=== PATIENT | male | born 1995 | race Caucasian/White ===

== ENCOUNTER 2016-06-02 19:51 | Emergency (ER) | payer OTHER ==
[~2016-06-02] VITALS: Ht 182.9 cm; Wt 86.8 kg
[~2016-06-02 19:51] MED LIST: NOMED
[2016-06-02 19:59] VITALS: BP 115/60; PULSE 86; RESP 18; O2SAT 97
--- NOTE | 2016-06-02 20:55 | ED.REPORT ---
HPI-Fever Date of Service Jun 02, 2016 ED Provider: Marie RiveraO. A healthy 21 year old male presents to the ED with a non-productive cough onset 0400 today. Associated symptoms include subjective fever, chills, fatigue, nasal congestion, and generalized myalgias. The patient has taken Tamiflu in the past and reports that it caused him to vomit. Nursing Notes Stated Complaint: CHEST PAIN/FEVER/CHILLS Chief Complaint: FLU/Cold Symptoms Nursing Notes Reviewed: Yes Allergies: Coded Allergies: Penicillins (Verified Allergy, Unknown, 03/12/12) AMOXICILLIN = RASH Miscellaneous Medications No Historical Medication (No Historical Medication) Ea General Time Seen by MD: 20:54 Chief Complaint Cough, non-productive Hx Obtained From: Patient Arrived By: Walk-in Onset Occurred: 13 - 16 hours ago Symptom Duration: Since onset Location: : Back upper (Generalized) Quality: Painful Severity: Current: Moderate Severity: Maximum: Moderate Associated with: Reports: Chills Pertinent Negative: Relieved by nothing Context: Immunization Status General: Unknown Recent Healthcare: No recent doctor visit Similar Sx Previous: Yes Past Medical History Past Medical History None reported Past Surgical History Right hand [place] Teeth Smoking History Unknown if Ever Smoker Ambulatory Status Independent Review of Systems Constitutional: Reports: Chills, Fatigue, Fever (Subjective) Ears / Nose / Throat: Reports: Nasal congestion Respiratory: Reports: Non-productive cough, Denies: Shortness of breath GI: Denies: Vomiting Complete sys rev & neg: except as marked. Musculoskeletal: Reports: Myalgia (Generalized) Physical Exam Initial Vital Signs Vital Signs (First) Date Time Temp Pulse Resp B/P Pulse Ox O2 Delivery O2 Flow Rate FiO2 06/02/16 19:59 37.6 86 18 115/60 97 Room Air Initial VS: Reviewed Head / Eyes: Atraumatic, Normocephalic ENT: Conjunctiva normal, No scleral icterus Psychiatric: Mood/affect normal, Behavior normal, Normal thought content General/Constitutional: Awake, Alert, No acute distress Respiratory / Chest: Breath sounds NL, Breath sounds = bilat, No respiratory distress Cardiovascular: Heart rate NL, Regular rhythm, Heart sounds NL Skin: Warm, Dry Neurologic: Oriented X3, Speech NL, No motor deficits, No sensory deficits Interpretation & Diagnostics Interpretation & Diagnostics: Positive for Influenza A Re-Eval/Medical Decision Med Decision/Clinical Course Influenza A syndrome without evidence of pneumonia, meningitis or sepsis. Tamiflu was offered and recommended. Mr. Burgos declined. Evidently he has had influenza in the past and he was intolerant to the Tamiflu. He understands the risks that he may have worsening disease due to the fact that he has not taking the Tamiflu. I do recommend that he is vaccinated in the future. He will return if any problems or any worsening symptoms. Re-Evaluation/Progress : Time of Eval: 21:10 Patient Status: Condition improved Re-Evaluation/Progress Note: Discussed with patient lab results, diagnosis, and plan for discharge. Follow-up and return to the ER instructions given. Patient agrees with plan for care and all questions were addressed. Counseled Regarding: Diagnosis, Lab results, Need for follow-up, When/why to return to ED Discharge & Departure Impression: Primary Impression: Influenza due to influenza A virus Disposition: Home Discharge Condition All VS Reviewed: Yes Condition: Stable Patient Instructions: Influenza (ED) Additional Instructions: Thank you for entrusting us with your care. Your Influenza swab was positive for Influenza A Use Tylenol or Motrin as directed for fever and chills. If you change your mind about Tamiflu, let us know. Do not take aspirin products. Read the Influenza after-care instructions given. Do not return to work until your symptoms have completely resolved, probably in 5-7 days. Drink fluids to remain hydrated. Call your primary care provider tomorrow for a follow-up appointment. Return to the ER with any new or worsening symptoms including confusion, headache, and cough. Referrals: Madelyn Franklin (PCP) Lisaibelvira Attestation Portions of this note were transcribed by Diane Francisco. I, Dr. Pate, personally performed the history, physical exam, and medical decision-making; I reviewed and confirmed the accuracy of the information in the transcribed note. Signed by: Joe García, 06/02/2016, 22:38 copies to: Madelyn Franklin Todd P DO Jun 02, 2016 20:55 DIANE FRANCISCO Jun 02, 2016 21:41
[2016-06-02] MEDS ORDERED: Ketorolac 30 mg/mL 2 mL Inj IM ONE (21:40)
[2016-06-02 22:07] VITALS: BP 121/60; PULSE 84; O2SAT 99
[2016-06-02 22:11] VITALS: BP 121/60; PULSE 84; RESP 18; O2SAT 99
== END 2016-06-02 22:11 | disposition home or self-care (01) ==
LOC: SED 19:51
DX: J10.1 Influenza due to other identified influenza virus with other respiratory manifestations (principal); Z88.0 Allergy status to penicillin; Z88.1 Allergy status to other antibiotic agents
CPT/HCPCS: 87804; 96372; 99284; J1885

== ENCOUNTER 2016-08-18 00:40 | Emergency (ER) | payer OTHER ==
[~2016-08-18] VITALS: Ht 182.9 cm; Wt 87.3 kg
[2016-08-18 00:43] VITALS: BP 131/68; PULSE 71; RESP 16; O2SAT 98
--- NOTE | 2016-08-18 00:52 | ED.REPORT ---
HPI-General Illness Date of Service Aug 18, 2016 ED Provider: Jesús Moore MD Patient is a healthy 21 year old male who presents to the ED complaining of a severe sore throat that began 1 week ago, worsening in severity tonight. Tonight he felt as if his throat was closing up. He reports pain with speaking, opening his mouth, and swallowing. Patient reported that his jaw was numb earlier today, which is now resolved. His mother reports that the patient has persistently complained of pain. He reports associated headache, cough, left ear pain, and a runny nose. Patient reports a subjective fever but is afebrile in the ED. He was seen at Urgent Care earlier today and started on Z-robyn his left ear infection. The patient did not recently sustain any head trauma. Patient has not recently had any sick contacts or known contact with mono. Nursing Notes Stated Complaint: SORE THROAT Chief Complaint: FLU/Cold Symptoms Nursing Notes Reviewed: Yes Allergies: Coded Allergies: Penicillins (Verified Allergy, Unknown, 08/18/16) AMOXICILLIN = RASH Scheduled Clindamycin (Clindamycin) 300 Mg Capsule 600 MG PO TID Dexamethasone (Dexamethasone) 4 Mg Tablet 4 MG PO BIDAC Miscellaneous Medications No Historical Medication (No Historical Medication) Ea General Time Seen by MD: 00:51 Chief Complaint Sore throat Hx Obtained From: Patient Arrived By: Walk-in Sudden in Onset?: No Onset Occurred: 1 week ago Symptom Duration: Since onset Quality: Painful Severity: Current: Severe Severity: Maximum: Severe Recent Healthcare: Recent doctor visit Similar Sx Previous: No Past Medical History Past Medical History healthy Past Surgical History Right hand [place] Teeth Smoking History Unknown if Ever Smoker Social History Other Social History: Good social support, Lives with parents, Local resident Ambulatory Status Independent Review of Systems + pain with speaking and moving jaw Full Review of Systems Constitutional: Denies: Chills, Fever (subjective) Ears / Nose / Throat: Reports: Earache left, Nasal congestion, Sore throat Respiratory: Reports: Non-productive cough GI: Reports: Dysphagia Allergy / Immune: Reports: Rhinorrhea Neurologic: Reports: Headache, Numbness Complete sys rev & neg: except as marked. Physical Exam Vital Signs Vital Signs Date Time Temp Pulse Resp B/P Pulse Ox O2 Delivery O2 Flow Rate FiO2 08/18/16 03:28 36.8 77 16 117/64 98 Room Air 08/18/16 01:48 96 20 Room Air 08/18/16 00:43 36.4 71 16 131/68 98 Room Air Initial VS: Reviewed Extremities: No swelling, No tenderness Skin: Warm, Dry, No cyanosis Neurologic: Alert, Oriented, Nonfocal Psychiatric: Mood/affect normal, Behavior normal General/Constitutional: Awake, Alert Head / Eyes: Atraumatic, Normocephalic, PERRL ENT: Airway patent Pharynx / Tonsils / Uvula: Positive: Pharyngeal erythema (mild) Trismus is present, he is only able to open his mouth 1-1.5cm. Tonsillar curtains and pillars are nearly touching, narrow appearing. Appear to be swollen symmetrically. Throat is not mobile, even with gagging. No exudates. Neck: Supple, No adenopathy no fluctuance Respiratory / Chest: Breath sounds NL, Breath sounds = bilat, No respiratory distress, No rales, No rhonchi, No wheezing, No stridor Cardiovascular: Heart rate NL, Regular rhythm, Heart sounds NL, No murmurs Interpretation & Diagnostics CT NECK CONCLUSION: Mild bilateral tonsillar hypertrophy, without peritonsillar abscess. Small, nonenlarged, nonspecific bilateral cervical lymph nodes, likely normal/reactive. Radiologist: Yolette Granger MD 08/18/2016 - 3:04:11 AM PDT Lab Results Interpretation Result Diagram: 08/18/16 0132 08/18/16 0132 Test 08/18/16 01:32 White Blood Count 10.4th/mm3 (3.8-10.1) Red Blood Count 4.56mil/mm3 (4.40-5.80) Hemoglobin 14.0g/dL (13.8-17.2) Hematocrit 39.4% (41.0-50.0) Mean Corpuscular Volume 86.4fL (81-100) Mean Corpuscular Hemoglobin 30.7pg (27.0-35.0) Mean Corpuscular Hemoglobin Concent 35.5% (32.0-37.0) Red Cell Distribution Width 12.1% (12.3-15.4) Platelet Count 233bil/L (150-400) Neutrophils (%) (Auto) 47.9% (40-74) Lymphocytes (%) (Auto) 39.6% (14-46) Monocytes (%) (Auto) 10.9% (4-12) Eosinophils (%) (Auto) 1.0% (0-5) Basophils (%) (Auto) 0.4% (0-3) Hematology Comments Wbc Prothrombin Time 10.5sec (8.1-12.5) Prothromb Time International Ratio 0.98ratio Activated Partial Thromboplast Time 30.6sec (22.8-33.0) Sodium Level 139mEq/L (134-144) Potassium Level 3.9mEq/L (3.5-5.2) Chloride Level 100mEq/L (97-108) Carbon Dioxide Level 25mmol/L (18-29) Blood Urea Nitrogen 16mg/dL (6-20) Creatinine 0.74mg/dL (0.76-1.27) Estimat Glomerular Filtration Rate 143mL/min (>59) Glucose Level 102mg/dL (60-99) Calcium Level 9.9mg/dL (8.5-10.1) Total Bilirubin 0.2mg/dL (0.0-1.2) Aspartate Amino Transf (AST/SGOT) 17U/L (0-50) Alanine Aminotransferase (ALT/SGPT) 14U/L (0-44) Alkaline Phosphatase 59U/L (25-150) Total Protein 7.7g/dL (6.4-8.4) Albumin 4.6g/dL (3.4-5.0) Hold Puentes Top Tube Received (Received) Monoscreen Negative (Negative) Re-Eval/Medical Decision Med Decision/Clinical Course 21-year-old man presents with sore throat and a sense of his throat closing up. He has some mild trismus and does appear to have a symmetrically swollen throat with diminished mobility. CT scanning does not reveal an abscess or any other airway threatening process. Strep scan is negative as would be expected on antibiotics already. His azithromycin is unlikely to deal with anaerobic infection and he was switched to clindamycin. A single dose of Decadron given IV here, to be followed by four twice a day for three days. Discharged in stable and improved condition. Follow-up with PCP. Prompt return if worse. Source of Hx: Old records Time of Eval: 03:14 Patient Status: Condition improved Re-Evaluation/Progress Note: Rechecked the patient, who feels improved after treatments. CT scan did not show any acute process. Patient understands and agrees with the plan to be discharged home. Discharge instructions and follow-up discussed. All questions were addressed. Return to the ED warnings given. Counseled Regarding: Diagnosis, Lab results, Need for follow-up, When/why to return to ED Discharge & Departure Primary Impression: Pharyngitis Pharyngitis/tonsillitis etiology: unspecified etiology Qualified Code: J02.9 - Acute pharyngitis, unspecified Disposition: Home Discharge Condition All VS Reviewed: Yes Condition: Stable Patient Instructions: Pharyngitis (ED) Additional Instructions: Stop the azithromycin at this point. Begin clindamycin three times daily. Decadron twice daily for three days. Follow-up with your doctor in the office. Out of work tomorrow, but may resume Wednesday. Return for any immediate issues, particularly difficulty swallowing, breathing, speaking. Referrals: Madelyn Franklin (PCP) Lisaibe Attestation Portions of this note were transcribed by Anaid Borges. I, Dr. Moore personally performed the history, physical exam and medical decision-making; I reviewed and confirmed the accuracy of the information in the transcribed note. Signed by: Joe Daley, 08/18/2016 [id number] copies to: Madelyn Franklin Christopher W MD Aug 18, 2016 00:52 Anaid Borges Aug 18, 2016 01:02
[2016-08-18] MEDS ORDERED: Dexamethasone 10 mg/mL Inj IVPUSH ONE (01:15)
[2016-08-18] MEDS ORDERED: Clindamycin Inj 900 MG in IV Premix 1 EACH IV ONE (01:15)
[2016-08-18] MEDS ORDERED: 0.9% Sodium Chloride 1,000 ML IV SCH (01:15)
[2016-08-18] MEDS ORDERED: Epinephrine Racemic 2.25% 0.5 mL Inhalation Solution NEB ONE (01:15)
[2016-08-18 01:43] LABS: BASOPHILS % (AUTO) 0.4 % (0-3); MONOCYTES % (AUTO) 10.9 % (4-12); Mean Corpuscular Hemoglobin 30.7 pg (27.0-35.0); Mean Corpuscular Volume 86.4 fL (81-100); NEUTROPHILS % (AUTO) 47.9 % (40-74); Platelet Count 233 bil/L (150-400)
[2016-08-18 01:48] VITALS: PULSE 96; RESP 20
[2016-08-18 02:02] LABS: INR 0.98 ratio
[2016-08-18] MEDS ORDERED: DXM4T PO (03:17)
[2016-08-18] MEDS ORDERED: CLIN-78 PO (03:17)
[2016-08-18 03:28] VITALS: BP 117/64; PULSE 77; RESP 16; O2SAT 98
--- NOTE | 2016-08-18 08:01 | DRSVH ---
PROCEDURE: CT NECK SOFT TISSUES WITH CONTRAST ([id number]) INDICATIONS: ? peritonsillar abscess TECHNIQUE: After the administration of intravenous contrast, 3.0 mm axial sections acquired from the sella to th e aortic arch. Additional oblique axial 3.0 mm sections acquired through the pharynx. 3 mm thick co pio reformats were generated. For radiation dose reduction, the following was used: automated exp osure control. COMPARISON: None. FINDINGS: Image quality: Excellent. Lymph nodes: There are numerous non-enlarged lymph nodes seen throughout the neck. Vessels: Visualized vasculature appears patent. Neck spaces: There is mild tonsillar enlargement, left than right. No paratonsillar fluid collection s to suggest abscess. The oropharynx, nasopharynx, and pharynx demonstrate no mucosal lesions. The v ocal cords, false vocal cords, pyriform sinuses, epiglottis, vallecula, and tongue base all appear no rmal. Extramucosal spaces appear unremarkable. Glands: The parotid and submandibular glands appear normal. Thyroid gland is normal. Miscellaneous: Visualized brain and orbits appear normal. Lung apices appear clear. Superficial so ft tissues appear normal. Bones: No suspicious bony lesions. Visualized sinuses and mastoids appear unremarkable. IMPRESSION: 1. No paratonsillar abscess identified. 2. Numerous normal-sized cervical lymph nodes bilaterally are present, most likely reactive. No significant discrepancy with the law enforcement instructor radiology preliminary report. Dictated by: Kyler Bass M.D. on 08/18/2016 at 7:57 Approved by: Kyler Bass M.D. on 08/18/2016 at 8:00
== END 2016-08-18 03:27 | disposition home or self-care (01) ==
LOC: SED 00:40
DX: J02.9 Acute pharyngitis, unspecified (principal); Z88.0 Allergy status to penicillin
CPT/HCPCS: 36415; 70491; 80053; 85025; 85610; 85730; 86308; 87040; 94664; 96365; 96375; 99285; J1100; J7030; Q9967